=== PATIENT | female | born 1990 | race Caucasian/White ===

== ENCOUNTER 2019-01-18 08:00 | Outpatient (CLI) | payer MEDICAID, OTHER ==
[2019-01-18 18:55] LABS: BASOPHILS # (AUTO) 0.1 10^3/uL (0.0-0.1); BASOPHILS % (AUTO) 0.5 %; EOSINOPHILS # (AUTO) 0.4 10^3/uL (0.0-0.7); EOSINOPHILS % (AUTO) 3.7 %; HGB - HEMOGLOBIN 11.6 g/dL (12.0-16.0); LYMPHOCYTES # (AUTO) 1.8 10^3/uL (1.5-3.5); LYMPHOCYTES % (AUTO) 15.7 %; MEAN CORPUSCULAR HEMOGLOBIN 30.9 pg (27.0-31.0); MEAN CORPUSCULAR HGB CONC 32.8 g/dL (32.0-36.0); MEAN CORPUSCULAR VOLUME 94.1 fL (81.0-99.0); MONOCYTES # (AUTO) 0.8 10^3/uL (0.0-1.0); MONOCYTES % (AUTO) 6.9 %; NEUTROPHILS # (AUTO) 8.5 10^3/uL (1.5-6.6); NEUTROPHILS % (AUTO) 73.2 %; PLT - PLATELET COUNT 273 10^3/uL (130-450); RED BLOOD COUNT 3.76 10^6/uL (4.20-5.40); RED CELL DISTRIBUTION WIDTH 13.1 % (12.0-15.0); WHITE BLOOD COUNT 11.6 x10^3/uL (4.8-10.8)
[2019-01-18 19:07] LABS: ALBUMIN 3.9 g/dL (3.2-5.5); ALBUMIN/GLOBULIN RATIO 1.3 (1.0-2.2); BILIRUBIN,TOTAL 0.7 mg/dL (0.2-1.0); CREATININE 0.6 mg/dL (0.4-1.0)
== END 2019-01-18 23:59 | disposition home or self-care (01) ==
LOC: LAB.N 08:00
PROVIDERS: ATTEND Nurse Practitioner
DX: R13.10 Dysphagia, unspecified (principal); J35.01 Chronic tonsillitis
CPT/HCPCS: 36415; 80050

== ENCOUNTER 2019-01-22 08:00 | Outpatient (CLI) | payer MEDICAID ==
[2019-01-22 19:42] LABS: % IRON SATURATION 18 % (20-50); IRON 67 ug/dL (28-170); TOTAL IRON BINDING CAPACITY 363 ug/dL (250-450); TRANSFERRIN 259 mg/dL (192-382)
== END 2019-01-22 23:59 | disposition home or self-care (01) ==
LOC: LAB.N 08:00
PROVIDERS: ATTEND Nurse Practitioner
DX: D64.9 Anemia, unspecified (principal)
CPT/HCPCS: 36415; 83540; 84466

== ENCOUNTER 2019-02-08 16:26 | Outpatient (CLI) | payer MEDICAID ==
--- NOTE | 2019-02-10 11:35 | Ultrasound Report ---
Reason: MASS OF KNEE Procedure Date: 02/08/2019 Accession Number: [id number] / [id number] Procedure: US - Ext Limited Non Vascular CPT Code: FULL RESULT: EXAM: LEFT LOWER EXTREMITY ULTRASOUND - LIMITED EXAM DATE: 02/08/2019 05:01 PM. CLINICAL HISTORY: Mass of knee. COMPARISON: None. TECHNIQUE: Real-time scanning was performed with static images obtained. FINDINGS: Targeted examination of the posterior left knee with color and grayscale imaging technique was performed. Certified Surgical Assistant static images acquired and reviewed. There is a nonvascular fluid collection containing particulate debris measuring 4.4 x 1.9 x 3 cm. Septations are noted within the collection. No solid components. No additional mass or adenopathy. IMPRESSION: Mass in the posterior left knee corresponds to an avascular, echogenic debris-containing collection with septations measuring 4.4 x 1.9 x 3 cm most compatible with a popliteal cyst. No additional masses, adenopathy or collections identified. Remaining soft tissues are normal. RADIA
== END 2019-02-08 16:27 | disposition home or self-care (01) ==
LOC: DI 16:26
PROVIDERS: ATTEND Nurse Practitioner
DX: M25.862 Other specified joint disorders, left knee (principal)
CPT/HCPCS: 76882

== ENCOUNTER 2019-02-21 14:33 | Outpatient (CLI) | payer MEDICAID | END 2019-02-21 23:59 | disposition home or self-care (01) | LOC: LAB.R 14:33 | PROVIDERS: ATTEND Family Medicine | DX: L60.0 Ingrowing nail (principal) | CPT/HCPCS: 87070; 87205 ==

== ENCOUNTER 2020-10-21 08:00 | Outpatient (CLI) | payer MEDICAID, OTHER | END 2020-10-21 23:59 | disposition home or self-care (01) | LOC: LAB.R 08:00 | PROVIDERS: ATTEND Nurse Practitioner | DX: J03.90 Acute tonsillitis, unspecified (principal) | CPT/HCPCS: 87070 ==

== ENCOUNTER 2020-11-13 09:02 | Outpatient (CLI) | payer OTHER | END 2020-11-13 23:59 | disposition home or self-care (01) | LOC: LAB.N 09:02 | PROVIDERS: ATTEND Family Medicine | DX: J03.90 Acute tonsillitis, unspecified (principal) | CPT/HCPCS: 36415; 86308; 87070 ==

== ENCOUNTER 2020-11-16 10:11 | Emergency (ER) | payer OTHER ==
[2020-11-16] MEDS ORDERED: DEXAMETHASONE 10 MG/ML VIAL PO STA (11:12)
[2020-11-16] MEDS ORDERED: BUTALB/ACETAM/CAFF 50/325/40MG TABLET PO STA (11:12)
[2020-11-16] MEDS ORDERED: CHERRY SYRUP 10 ML UDC PO ONE (11:12)
--- NOTE | 2020-11-16 11:25 | ED Physician Documentation ---
History of Present Illness - Stated complaint Stated Complaint: CHILDERS/VISION LOSS - Chief complaint Chief Complaint: Neuro - History obtained from History obtained from: Patient - History of Present Illness Timing: Today Pain level max: 8 Pain level now: 7 - Additonal information Additional information: 30-year-old female presents to the emergency department with blurred vision to her bilateral eyes earlier today and seeing spots. She states that she then developed a headache. Has had migraine headaches in the past. The vision is back to normal currently. No numbness or tingling. No focal neurological deficits. Patient also states that she was recently tested positive for strep pharyngitis, placed on amoxicillin, but has not improved. She states that her throat is still sore. Scheduled to see ENT next month. No fevers. No vomiting. 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 - Present Medications Home Medications: Ambulatory Orders Medication Instructions Recorded Confirmed Butalb/Acetaminophen/Caffeine 1 cap PO Q6H PRN #10 capsule 11/16/20 [Fioricet 50-300-40 mg Capsule] cephALEXin [Keflex] 500 mg PO Q6H #40 capsule 11/16/20 predniSONE [Deltasone] 40 mg PO DAILY #10 tablet 11/16/20 - Allergies Allergies/Adverse Reactions: Allergies Allergy/AdvReac Type Severity Reaction Status Date / Time No Known Drug Allergies Allergy Verified 11/16/20 10:16 - Living Situation Living Situation: reports: With family Living Arrangement: reports: At home - Social History Does the pt smoke?: No Smoking Status: Never smoker Does the pt drink ETOH?: No Does the pt have substance abuse?: No - Immunizations Immunizations are current?: Yes PD ED PE NORMAL - Vitals Vital signs reviewed: Yes - General General: Alert and oriented X 3, No acute distress, Well developed/nourished - HEENT HEENT: Atraumatic, PERRL, EOMI, Ears normal, Moist mucous membranes, Pharynx benign, Other (Normal funduscopic exam. Tonsils are mildly swollen on examination here, no exudate. Normal phonation. No trismus.) - Neck Neck: Supple, no meningeal sign - Cardiac Cardiac: RRR, Strong equal pulses - Respiratory Respiratory: No respiratory distress, Clear bilaterally - Abdomen Abdomen: Soft, Non tender, Non distended - Derm Derm: Warm and dry - Extremities Extremities: No edema - Neuro Neuro: Alert and oriented X 3, wallcovering hanger 2-12 intact, No motor deficit, No sensory deficit, Normal speech Eye Opening: Spontaneous Motor: Obeys Commands Verbal: Oriented GCS Score: 15 - Psych Psych: Normal mood, Normal affect Results - Vitals Vitals: Vital Signs - 24 hr 11/16/20 11/16/20 10:17 11:37 Temperature 37.4 C 36.5 C Heart Rate 70 65 Respiratory 19 19 Rate Blood Pressure 126/91 H 121/63 O2 Saturation 100 100 Oxygen O2 Source Room air PD MEDICAL DECISION MAKING - ED course Complexity details: considered differential, d/w patient ED course: Patient with a migraine headache. Feels better after Fioricet. She also feels like her throat is still sore and swollen after being recently diagnosed with strep. We will place her on steroids for home in addition to Keflex. Patient counseled regarding signs and symptoms for which I believe and urgent re- evaluation would be necessary. Patient with good understanding of and agreement to plan and is comfortable going home at this time This document was made in part using voice recognition software. While efforts are made to proofread this document, sound alike and grammatical errors may occur. Departure - Departure Disposition: 01 Home, Self Care Clinical Impression: Tonsillitis Migraine Qualifiers: Migraine type: with aura Status migrainosus presence: without status migrainosus Intractability: not intractable Qualified Code(s): G43.109 - Migraine with aura, not intractable, without status migrainosus Condition: Good Instructions: ED Headache Migraine, ED Tonsillitis Follow-Up: your,doctor in 1 week [Other] Prescriptions: predniSONE [Deltasone] 40 mg PO DAILY #10 tablet Butalb/Acetaminophen/Caffeine [Fioricet 50-300-40 mg Capsule] 1 cap PO Q6H PRN #10 capsule PRN Reason: headache cephALEXin [Keflex] 500 mg PO Q6H #40 capsule Comments: We will trial you on a different antibiotic to see if this helps your throat. Take all steroids until gone. You can use the Fioricet as needed for headache. Return if you worsen. Discharge Date/Time: 11/16/20 11:41
[2020-11-16 11:38] VITALS: BP 121/63
== END 2020-11-16 11:41 | disposition home or self-care (01) ==
LOC: EDUNIT# → ED 10:11
DX: G43.109 Migraine with aura, not intractable, without status migrainosus (principal); J03.90 Acute tonsillitis, unspecified
CPT/HCPCS: 99283; 99284; A9270

== ENCOUNTER 2021-06-07 08:00 | Outpatient (CLI) | payer MEDICAID, OTHER ==
[2021-06-07 18:19] LABS: RAPID STREP SCREEN Negative (Negative)
== END 2021-06-07 23:59 | disposition home or self-care (01) ==
LOC: LAB.N 08:00
PROVIDERS: ATTEND Family Medicine
DX: R07.0 Pain in throat (principal); Z20.822 Contact with and (suspected) exposure to COVID-19
CPT/HCPCS: 87070; 87430

== ENCOUNTER 2021-09-29 08:00 | Outpatient (CLI) | payer OTHER | END 2021-09-29 23:59 | LOC: LAB.N 08:00 | PROVIDERS: ATTEND Family Medicine | DX: R05.9 Cough, unspecified (principal); R07.0 Pain in throat; Z20.822 Contact with and (suspected) exposure to COVID-19 | CPT/HCPCS: 87070; 87275; 87276 ==

== ENCOUNTER 2021-10-22 08:00 | Outpatient (CLI) | payer OTHER | END 2021-10-22 23:59 | LOC: LAB.N 08:00 | PROVIDERS: ATTEND Family Medicine | DX: U07.1 COVID-19 (principal) ==

== ENCOUNTER 2021-12-21 07:13 | Outpatient (CLI) | payer OTHER ==
[2021-12-21 12:06] LABS: ESTIMATED AVERAGE GLUCOSE 108 mg/dL (70-100); HEMOGLOBIN A1c% 5.4 % (4.27-6.07)
[2021-12-21 12:33] LABS: THYROID STIMULATING HORMONE 3.36 uIU/mL (0.34-5.60)
[2021-12-21 12:35] LABS: ALBUMIN 4.3 g/dL (3.2-5.5); ALBUMIN/GLOBULIN RATIO 1.5 (1.0-2.2); ALKALINE PHOSPHATASE 36 IU/L (42-121); ALT ALANINE AMINOTRANSFERASE 25 IU/L (10-60); AST ASPARTATE AMINOTRANSFERASE 22 IU/L (10-42); BILIRUBIN,TOTAL 0.9 mg/dL (0.2-1.0); BUN - BLOOD UREA NITROGEN 17 mg/dL (6-20); CARBON DIOXIDE - CO2 26 mmol/L (21-32); CHLORIDE 104 mmol/L (101-111); CHOL/HDL RATIO 2.8 (<4.4); CHOLESTEROL 179 mg/dL; CREATININE 0.6 mg/dL (0.4-1.0); GFR - MDRD 116 (>89); GLUCOSE 94 mg/dL (70-100); HDL CHOLESTEROL 64 mg/dL; LDL CHOLESTEROL,CALCULATED 107 mg/dL; LDL/HDL RATIO 1.7 (<4.4); POTASSIUM 4.1 mmol/L (3.5-5.0); SODIUM 138 mmol/L (135-145); TOTAL PROTEIN 7.2 g/dL (6.7-8.2); TRIGLYCERIDES 42 mg/dL; VLDL CHOLESTEROL 8 mg/dL
[2021-12-21 12:45] LABS: BASOPHILS # (AUTO) 0.1 10^3/uL (0.0-0.1); EOSINOPHILS # (AUTO) 0.5 10^3/uL (0.0-0.7); EOSINOPHILS % (AUTO) 8.4 %; HCT - HEMATOCRIT 39.2 % (37.0-47.0); HGB - HEMOGLOBIN 12.8 g/dL (12.0-16.0); LYMPHOCYTES # (AUTO) 2.4 10^3/uL (1.5-3.5); LYMPHOCYTES % (AUTO) 37.9 %; MEAN CORPUSCULAR HEMOGLOBIN 30.8 pg (27.0-31.0); MEAN CORPUSCULAR HGB CONC 32.7 g/dL (32.0-36.0); MEAN CORPUSCULAR VOLUME 94.5 fL (81.0-99.0); MEAN PLATELET VOLUME 10.5 fL (7.9-10.8); MONOCYTES # (AUTO) 0.5 10^3/uL (0.0-1.0); MONOCYTES % (AUTO) 7.9 %; NEUTROPHILS # (AUTO) 2.8 10^3/uL (1.5-6.6); NEUTROPHILS % (AUTO) 44.6 %; PLT - PLATELET COUNT 327 10^3/uL (130-450); RED BLOOD COUNT 4.15 10^6/uL (4.20-5.40); RED CELL DISTRIBUTION WIDTH 12.3 % (12.0-15.0); WHITE BLOOD COUNT 6.3 x10^3/uL (4.8-10.8)
[2021-12-21 18:50] LABS: CHLAMYDIA TRACHOMATIS DNA NEGATIVE (NEGATIVE); NEISSERIA GONORRHOEAE DNA NEGATIVE (NEGATIVE); TRICHOMONAS VAGINALIS DNA NEGATIVE (NEGATIVE)
== END 2021-12-21 07:14 | disposition home or self-care (01) ==
LOC: LAB.N 07:13
PROVIDERS: ATTEND Physician Assistant
DX: Z13.1 Encounter for screening for diabetes mellitus (principal); Z13.220 Encounter for screening for lipoid disorders; Z13.9 Encounter for screening, unspecified; Z13.29 Encounter for screening for other suspected endocrine disorder; Z11.3 Encounter for screening for infections with a predominantly sexual mode of transmission
CPT/HCPCS: 36415; 80053; 80061; 82306; 83036; 83721; 84443; 85025; 87491; 87591; 87661

== ENCOUNTER 2023-05-19 18:13 | Emergency (ER) | payer MEDICAID, OTHER ==
[2023-05-19 18:22] VITALS: BP 146/93
[2023-05-19] MEDS ORDERED: ACETAMINOPHEN 325 MG TABLET PO STA (18:47)
[2023-05-19] MEDS ORDERED: IBUPROFEN 400 MG TABLET PO STA (18:47)
--- NOTE | 2023-05-19 18:48 | ED Physician Documentation ---
PD HPI HEAD INJURY - Stated complaint Stated Complaint: HIT HEAD - Chief complaint Chief Complaint: General - History obtained from History obtained from: Patient - Additional information Additional information: Patient presents for evaluation of head injury. She was outside gardening when her [place] dog ran to come greet her and hit his head against her left forehead. No LOC. She states that after the incident she was dazed and slightly nauseous and with the throbbing in her head she decided to come in for evaluation. Did not take any medication prior to arrival. Currently reports pain in her left forehead, denies nausea, vomiting, photophobia Review of Systems Constitutional: denies: Fever, Chills GI: reports: Nausea. denies: Abdominal Pain, Vomiting Neurologic: reports: Headache, Head injury. 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 - Present Medications Home Medications: Ambulatory Orders Medication Instructions Recorded Confirmed No Known Home Medications 05/19/23 05/19/23 - Allergies Allergies/Adverse Reactions: Allergies Allergy/AdvReac Type Severity Reaction Status Date / Time seasonal Allergy Respiratory Uncoded 11/17/20 09:59 - Social History Does the pt smoke?: No Smoking Status: Never smoker Does the pt drink ETOH?: No Does the pt have substance abuse?: No - Immunizations Immunizations are current?: Yes PD ED PE NORMAL - Vitals Vital signs reviewed: Yes - General General: Alert and oriented X 3, No acute distress, Well developed/nourished - HEENT HEENT: PERRL, EOMI, Ears normal, Moist mucous membranes, Other (Slight swelling L forehead. No crepitus, no stepoffs, no Raccoon eyes) - Neck Neck: Supple, no meningeal sign, No bony TTP, No adenopathy, C-Spine cleared by NEXUS criteria - Derm Derm: Normal color, Warm and dry, No rash - Extremities Extremities: No deformity, No tenderness to palpate, Normal ROM s pain, No edema - Neuro Neuro: Alert and oriented X 3, supervisor assembling 2-12 intact, No motor deficit, Normal speech - Psych Psych: Normal mood, Normal affect Results - Vitals Vitals: Oxygen O2 Source Room air PD Medical Decision Making - ED course ED course: Minor head trauma. [place] head CT and [facility] head CT rules negative. No indication for imaging. Patient was counseled that she may have a mild concussion and advised to drink plenty of fluids, and mentally rest by avoiding loud noises, bright lights, and minimizing screen time. Tylenol and motrin advised prn for pain Departure - Departure Disposition: 01 Home, Self Care Clinical Impression: Head injury Condition: Stable Instructions: Concussion Dc Comments: TAKE TYLENOL AND MOTRIN NEEDED FOR PAIN. APPLY ICE TO FOREHEAD FOR PAIN/SWELLING. DRINK PLENTY OF FLUIDS, AND AVOID OVERLY STIMULATING THINGS SUCH LOUD NOISES, BRIGHT LIGHTS, AND EXCESSIVE SCREENTIME. Forms: PCP List Discharge Date/Time: 05/19/23 18:56
== END 2023-05-19 18:56 | disposition home or self-care (01) ==
LOC: ED 18:13
DX: S09.90XA Unspecified injury of head, initial encounter (principal); W54.1XXA Struck by dog, initial encounter; Y93.H2 Activity, gardening and landscaping; Y92.007 Garden or yard of unspecified non-institutional (private) residence as the place of occurrence of the external cause
CPT/HCPCS: 99282; 99283; A9270

== ENCOUNTER 2023-12-30 14:24 | Outpatient (CLI) | payer OTHER ==
--- NOTE | 2023-12-31 08:44 | XRAY Report ---
PROCEDURE: Thoracic Spine 2V INDICATIONS: STRAIN OF MUSCLE AND TENDON OF UNSPECIFIED WALL TECHNIQUE: 2 views of the thoracic spine were acquired. COMPARISON: None. FINDINGS: Bones: No fractures or dislocations. No suspicious bony lesions. 12 pairs of ribs are noted, and a ppear intact where visualized. Soft tissues: No paravertebral stripe thickening. IMPRESSION: No acute bony abnormality. No significant degenerative change. Reviewed by: Segundo German MD on 12/31/2023 8:42 AM PDT Approved by: Segundo German MD on 12/31/2023 8:42 AM PDT Station ID: [id number]
== END 2023-12-30 14:25 | disposition home or self-care (01) ==
LOC: DI 14:24
PROVIDERS: ATTEND Nurse Practitioner
DX: S29.019D Strain of muscle and tendon of unspecified wall of thorax, subsequent encounter (principal)